=== PATIENT | male | born 1970 | race American Indian/Alaskan Native ===

== ENCOUNTER 2021-10-06 14:16 | Emergency (ER) | payer SELFPAY ==
[2021-10-06] MEDS ORDERED: predniSONE 20 MG TAB PO ONE (21:56)
[2021-10-06] MEDS ORDERED: IBUPROFEN 600 MG TAB PO ONE (21:56)
[2021-10-06] MEDS ORDERED: ONDANSETRON 4 MG ODT TAB PO ONE (21:56)
[2021-10-06] MEDS ORDERED: HYDROcodone/ACETAMINOPHEN 5-325 MG TAB PO ONE (21:56)
--- NOTE | 2021-10-06 23:40 | Emergency Department Report ---
ED Extremity Problem HPI - General Chief complaint: Extremity Problem,Nontraumatic Stated complaint: LEFT HIP AND KNEE PAIN Source: patient, EMS Mode of arrival: Ambulatory Limitations: No Limitations - History of Present Illness Initial comments: Patient is a 51-year-old -[place] male with a history of chronic osteoarthritis who presents to the ED with complaint of acute exacerbation of his chronic left hip pain for the last 1 week, worse in the last 2 days. Patient states that he is scheduled for a total hip replacement surgery in 2 days in [facility] and would like some for pain to help while he is preparing to go for his surgery in 2 days. Patient states that he is unable to bear weight on the left leg because of worsening left hip pain. Patient denies dizziness, syncope, chest pain, shortness of breath, fall, heavy lifting, low back pain, testicular pain, dysuria, hematuria, numbness and tingling or weakness of upper and lower extremities bilaterally, fever and chills. MD Complaint: extremity pain (left hip pain), joint paint (chronic osteoarthritis of left hip) -: Gradual, year(s) (2) Location: left, lower extremity (hip) History of Same: Yes (Chronic osteoarthritis of left hip) -: Yes arthralgia (Chronic left hip pain), No fever, No associated dyspnea, No associated chest pain Radiation: distal Severity scale (0 -10): 9 Quality: aching, sharp Consistency: constant Improves with: nothing Worsens with: weight bearing, walking, palpation Associated Symptoms: denies other symptoms, arthralgias (Left hip pain). denies: chest pain, shortness of breath, fever, myalgias - Related Data Previous Rx's Medication Instructions Recorded Last Taken Type Baclofen 20 mg PO Q12H PRN #20 tab 10/06/21 Unknown Rx Naproxen 500 mg PO Q12H PRN #30 tab 10/06/21 Unknown Rx predniSONE [Deltasone] 40 mg PO QDAY #10 tab 10/06/21 Unknown Rx traMADoL [Ultram] 50 mg PO Q6HR PRN #10 tablet 10/06/21 Unknown Rx Allergies Allergy/AdvReac Type Severity Reaction Status Date / Time No Known Allergies Allergy Verified 10/06/21 22:06 ED Review of Systems ROS: Stated complaint: LEFT HIP AND KNEE PAIN Other details as noted in HPI Constitutional: denies: chills, fever Eyes: denies: eye pain, eye discharge, vision change ENT: denies: ear pain, throat pain Respiratory: denies: cough, shortness of breath, wheezing Cardiovascular: denies: chest pain, palpitations Endocrine: no symptoms reported Gastrointestinal: denies: abdominal pain, nausea, diarrhea Genitourinary: denies: urgency, dysuria Musculoskeletal: arthralgia (Left hip pain). denies: back pain, joint swelling Skin: denies: rash, lesions Neurological: denies: headache, weakness, paresthesias Psychiatric: denies: anxiety, depression Hematological/Lymphatic: denies: easy bleeding, easy bruising ED Past Medical Hx - Past Medical History Hx Arthritis: Yes (Chronic osteoarthritis of left hip) - Medications Home Medications: Home Medications Medication Instructions Recorded Confirmed Last Taken Type Baclofen 20 mg PO Q12H PRN #20 tab 10/06/21 Unknown Rx Naproxen 500 mg PO Q12H PRN #30 tab 10/06/21 Unknown Rx predniSONE [Deltasone] 40 mg PO QDAY #10 tab 10/06/21 Unknown Rx traMADoL [Ultram] 50 mg PO Q6HR PRN #10 tablet 10/06/21 Unknown Rx ED Physical Exam - General Limitations: No Limitations General appearance: alert, in no apparent distress - Head Head exam: Present: atraumatic, normocephalic, normal inspection - Eye Eye exam: Present: normal appearance, PERRL, EOMI Pupils: Present: normal accommodation - ENT ENT exam: Present: normal exam, normal orophraynx, mucous membranes moist, TM's normal bilaterally, normal external ear exam - Neck Neck exam: Present: normal inspection, full ROM. Absent: tenderness - Respiratory Respiratory exam: Present: normal lung sounds bilaterally. Absent: respiratory distress, wheezes, rales, rhonchi, chest wall tenderness, accessory muscle use, decreased breath sounds - Cardiovascular Cardiovascular Exam: Present: regular rate, normal rhythm, normal heart sounds. Absent: systolic murmur, diastolic murmur, rubs, gallop - GI/Abdominal GI/Abdominal exam: Present: soft, normal bowel sounds. Absent: tenderness, guarding, rebound, hyperactive bowel sounds, hypoactive bowel sounds, organomegaly, mass - Extremities Exam Extremities exam: Present: normal inspection, tenderness (Palpable left hip tenderness with limited range of motion due to pain), normal capillary refill. Absent: full ROM (Limited range of motion left hip due to pain), pedal edema, joint swelling, calf tenderness - Back Exam Back exam: Present: normal inspection, full ROM. Absent: tenderness, CVA tenderness (R), CVA tenderness (L), muscle spasm, paraspinal tenderness, vertebral tenderness - Neurological Exam Neurological exam: Present: alert, oriented X3, CN II-XII intact, normal gait, reflexes normal - Psychiatric Psychiatric exam: Present: normal affect, normal mood - Skin Skin exam: Present: warm, dry, intact, normal color. Absent: rash ED Course Vital Signs 10/06/21 10/06/21 10/06/21 14:16 22:39 22:40 Temperature 98.5 F Pulse Rate 86 Respiratory 16 18 16 Rate Blood Pressure 111/79 [Left] O2 Sat by Pulse 100 Oximetry ED Medical Decision Making - Medical Decision Making This is a 51-year-old -[place] male with a history of chronic osteoarthritis who presents to the ED with complaint of acute exacerbation of his chronic left hip pain for the last 1 week, worse in the last 2 days. Patient states that he is scheduled for a total hip replacement surgery in 2 days in [facility] and would like some for pain to help while he is preparing to go for his surgery in 2 days. Patient states that he is unable to bear weight on the left leg because of worsening left hip pain. In the ED, patient is alert and oriented x3 and is not in any distress. Patient is hemodynamically stable and appears to be in pain. Patient was treated for pain in the ED and on reevaluation, patient's pain is well controlled medication. Patient was discharged home on pain medications and advised to follow-up with his therapeutic surgeon as previously scheduled. Patient was advised to return to the ED immediately if symptoms get worse. - Differential Diagnosis Chronic pain; chronic osteoarthritis; muscle strain Critical care attestation.: If time is entered above; I have spent that time in minutes in the direct care of this critically ill patient, excluding procedure time. ED Disposition Clinical Impression: Chronic osteoarthritis, Chronic left hip pain Disposition: HOME / SELF CARE / HOMELESS Is pt being admited?: No Does the pt Need Aspirin: No Condition: Stable Instructions: Joint Pain, [id number], Musculoskeletal Pain, Arthritis, [id number], Osteoarthritis, Hip Pain Additional Instructions: Take medication with food, drink plenty of fluids, follow-up with your primary care physician or orthopedic surgeon as previously scheduled. Return to the ED immediately if symptoms get worse. Prescriptions: Baclofen 20 mg PO Q12H PRN #20 tab PRN Reason: Muscle Spasm predniSONE [Deltasone] 40 mg PO QDAY #10 tab Naproxen 500 mg PO Q12H PRN #30 tab PRN Reason: Pain , Severe (7-10) traMADoL [Ultram] 50 mg PO Q6HR PRN #10 tablet PRN Reason: Pain Referrals: [facility] [Provider Group] - 3-5 Days Time of Disposition: 23:44 Print Language: GEORGIAN
[2021-10-07 01:19] VITALS: BP 111/65
== END 2021-10-07 01:22 | disposition home or self-care (01) ==
LOC: ED 14:16
DX: M25.552 Pain in left hip (principal); M16.12 Unilateral primary osteoarthritis, left hip
CPT/HCPCS: 99283; J3490; Q0162

== ENCOUNTER 2021-10-07 16:41 | Emergency (ER) | payer SELFPAY ==
[2021-10-07 17:05] VITALS: BP 131/75
== END 2021-10-08 14:04 | disposition left against medical advice (07) ==
LOC: ED 16:41
DX: Z13.30 Encounter for screening examination for mental health and behavioral disorders, unspecified (principal); Z53.21 Procedure and treatment not carried out due to patient leaving prior to being seen by health care provider

== ENCOUNTER 2021-10-08 09:02 | Emergency (ER) | payer SELFPAY | END 2021-10-08 09:07 | disposition left against medical advice (07) | LOC: ED 09:02 | DX: F32.9 Major depressive disorder, single episode, unspecified (principal); Z53.21 Procedure and treatment not carried out due to patient leaving prior to being seen by health care provider ==